=== PATIENT | male | born 1995 | race Caucasian/White ===

== ENCOUNTER → 2018-08-22 | Outpatient (REF) ==
--- NOTE | 2018-08-23 15:59 | REP ---
Chest x-ray: Two views. Portable exam: History: Autopsy films. Rupture or hernia. Findings: There is a moderate amount of extra thoracic soft tissue emphysema projecting along the right lateral chest wall, left supraclavicular and left axillary soft tissues. There is pleuroparenchymal opacity in the apex of the left chest and to a lesser extent right chest. There is increased density overlying the left heart. There is a air shadow over the left heart which may be stomach. This suggests the possibility of diaphragmatic rupture or hernia. There are a transversely oriented fractures of the right posterior 9th and 10th ribs. An equivocal fracture of the left lateral 2nd rib is seen. There is a dextroconvex curve in the thoracic spine. No other skeletal fracture is visible. An EKG monitoring pad is seen overlying the right chest. There are air bronchograms in the right base medially. Impression: Biapical pleuroparenchymal opacity consistent with hematoma. Gas density over the heart at the left base question ruptured diaphragm versus hiatal hernia. Two right and one possible left rib fractures. Evidence of pulmonary contusion right base and both lung apices. Extrathoracic soft tissue emphysema. Electronically Signed by Jesu Costello MD 08/23/2018 04:13 P
--- NOTE | 2018-08-23 15:59 | REP ---
Partial skull series: Two views. History: Autopsy films. Findings: The occiput is excluded from the field of view on the lateral radiograph. Both views are somewhat rotated. No calvarial or facial fracture is apparent. The visualized cervical spine is intact. Soft tissue emphysema is seen in the left supraclavicular soft tissues. No other finding. Electronically Signed by Jesu Costello MD 08/23/2018 04:13 P
--- NOTE | 2018-08-23 16:00 | REP ---
Cervical spine portable exam. History: Autopsy films. Findings: AP and portably obtained lateral views are presented. No cervical spine fracture is visualized on these views. The lateral view shows normal alignment from C2 through C5. The lower two cervical vertebrae are not visualized on the lateral projection. There is soft tissue emphysema in the left supraclavicular soft tissues. Biapical pleuroparenchymal opacity is seen in the thorax. There is irregularity of the left lateral 2nd rib which may be a fracture. Electronically Signed by Jesu Costello MD 08/23/2018 04:14 P
== END ==
LOC: M LAB 12:40
DX: Z02.89 Encounter for other administrative examinations (principal)